=== PATIENT | male | born 1955 | race Caucasian/White ===

== ENCOUNTER → 2018-07-29 | Outpatient (CLI) | payer OTHER ==
--- NOTE | 2018-07-29 08:22 | RAD ---
ABDOMEN COMPLETE History: Abdominal pain, right lower quadrant protrusion with standing and lifting legs Comparison: None. Findings: Multiple sonographic images of the abdomen are submitted. Gallbladder is present without intraluminal abnormality, wall thickening, pericholecystic fluid. Common bile duct is within normal limits at 0.4 cm. No focal hepatic lesion is demonstrated, hepatic echotexture within normal limits. There is segmental visualization of the inferior vena cava. Pancreas is not well-visualized due to bowel gas. Abdominal aorta is also not well visualized due to bowel gas, distally estimated at 2.2 cm in caliber. Right kidney measured 11 x 5 x 5.7 cm. There is nearly anechoic lesion of the inferior right kidney about 2.4 x 2.8 x 1.5 cm in size, overall findings of a cyst. Left kidney measured 12.2 x 4.8 x 5.9 cm. There is no hydronephrosis of either kidney. No free fluid is demonstrated. No soft tissue abnormality is demonstrated by ultrasound of the right lower quadrant. Impression: 1. There is inferior right renal cyst, no other abnormality demonstrated. Midline structures are poorly visualized due to bowel gas as stated. Electronically signed by: Boubacar Ro MD (07/29/2018 8:18 AM) [email or web address]
== END | disposition home or self-care (01) ==
LOC: US 06:44
PROVIDERS: ATTEND Surgery
DX: N28.1 Cyst of kidney, acquired (principal)
CPT/HCPCS: 76700

== ENCOUNTER → 2018-08-07 | Outpatient (CLI) | payer OTHER ==
--- NOTE | 2018-08-07 12:49 | KCIC ---
MRI of the thoracic spine without contrast 08/07/2018 CLINICAL HISTORY: Mid back pain with right flank tingling. TECHNIQUE: Unenhanced T1-weighted, T2-weighted and inversion recovery sagittal and T1-weighted and T2-weighted axial images of the thoracic spine were obtained. T2-weighted sagittal images of the cervical, thoracic and lumbar spine were obtained for localization purposes. FINDINGS: Comparison is made to radiographs of the thoracic spine dated 12/05/2017. Minimal S-shaped curvature of the thoracolumbar spine is seen. Degenerative signal changes are seen involving all of the disks of the cervical spine. Degenerative signal changes are seen within the marrow surrounding these discs. No area of abnormal signal intensity is seen involving the thoracic spinal cord. On the axial images throughout the thoracic disc spaces, degenerative changes are seen consisting of minimal to mild generalized disc bulges and degenerative changes involving the facet joints. Right paracentral disc protrusions are seen at T6-7 and T7-8 which measure 2 to 3 mm in AP diameter. A right paracentral focal disc herniation is seen at T8-9 which measures 4 mm in AP diameter. This effaces the anterior CSF and mildly deforms the anterior aspect of the thoracic spinal cord without impinging upon it. A left paracentral focal disc protrusion is seen at T10-11 which measures 3 mm in AP diameter. This does not result in significant central spinal canal or neural foraminal stenosis. IMPRESSION: Degenerative changes are seen involving the thoracic spine as outlined above. These findings do not result in significant central spinal canal or neural foraminal stenosis. Electronically signed by: César Henderson MD (08/07/2018 12:44 PM) [facility]
== END | disposition home or self-care (01) ==
LOC: KCIC MRI 08:23
PROVIDERS: ATTEND Family Medicine
DX: M47.894 Other spondylosis, thoracic region (principal); M51.24 Other intervertebral disc displacement, thoracic region
CPT/HCPCS: 72146

== ENCOUNTER → 2018-09-17 | Outpatient (CLI) | payer OTHER ==
[~2018-09-17] MED LIST: REGADENOSON 0.4 MG/5 ML DISP.SYRIN. IV ONE
--- NOTE | 2018-09-17 12:11 | RAD ---
MR#: [id number] Date of Study: 09/17/2018 Ordering Physician: THIERRY LING Referring Physician: ANABELA GIANG Tech: RT Noy (R) (N) APPROVED REPORT Test Type: Pharmacological Stress Nurse/Tech: Magdy Phillips RN Test Indications: Paroxysmal atrial Fibrillation Cardiac History: smoker Medications: See Electronic Medical Record Medical History: See Electronic Medical Record Resting ECG: Atrial fibrillation Resting Heart Rate: 41 bpm Resting Blood Pressure: 122/79mmHg Pretest Chest Pain: None Nurse/Tech Notes lungs CTA, Irregular heart rate Consent: The procedure was explained to the patient in lay terms. Informed consent was witnessed. Alex eout was entered into [employer]. History and Stress Test performed by Magdy Phillips RN Pharm. Details Pharmacologic stress testing was performed using 0.4mg per 5ml of regadenoson given intravenously ove r 7-10 seconds. Stress Symptoms No chest pain or symptoms, dyspnea POST EXERCISE Reason for Termination: Infusion complete Max HR: 67 bpm Max Blood Pressure: 137/77mmHg Blood Pressure response to exercise: Normal blood pressure response during stress. Heart Rate response to exercise: normal response Chest Pain: No. Arrhythmia: No. ST Change: No. INTERPRETATION Stress EKG Conclusion: The resting EKG shows sinus bradycardia and nonspecific ST-T wave changes. The stress EKG shows no significant changes from baseline. No EKG evidence of stress-induced ischemia. Imaging Protocol IMAGE PROTOCOL: Rest Tc-99m/stress Tc-99m 1 day Rest: Stress: Viability: Radiopharm.Tc99m ThjvvjlbdAu49v Sestamibi Uezj84gKr 32mCi Duration 13min. 13min. Img Date 09/17/2018 09/17/2018 Inj-Img Maty05qmx. 60min. Rest Admin Site:IV - Right AntecubitalAdministrator:RT Noy (R)(N) Stress Admin Site: IV - Right AntecubitalAdministrator: RT Noy (R)(N) STRESS DATA End Diast. Vol.128.0mlLVEDV index BSA59.0ml End Syst. Vol.39.0mlLVESV index BSA18.0ml Myocardial Qyee136.0gEject. Vzxjdqem39.0% Stress Scores Regional WT0.00Summed WT2.00 Regional WM0.00Summed WM3.00 LV Perfusion The stress scans showed no significant defects. The rest scans showed no significant defects. Nuclear imaging shows no reversible ischemia or infarct. Wall Motion Normal left ventricular systolic function with an ejection fraction of 70%. LV Perf. Quant 17 Seg. SSS0.00 17 Seg. SRS3.00 17 Seg. SDS0.00 Stress Defect Extent (% LAD)0.00Rest Defect Extent (% LAD)7.50Rev. Defect Extent (% LAD)0.00 Stress Defect Extent (% LCX) 0.00Rest Defect Extent (% LCX)0.00Rev. Defect Extent (% LCX)0.00 Stress Defect Extent (% RCA)0.00Rest Defect Extent (% RCA)5.60Rev. Defect Extent (% RCA)0.00 Stress Defect Extent (% DARIAN)0.00Rest Defect Extent (% DARIAN)6.70Rev. Defect Extent (% DARIAN)0.00 Conclusion 1. No EKG evidence of stress-induced ischemia. 2. Nuclear imaging shows no reversible ischemia or infarct. 3. Normal left ventricular systolic function with an ejection fraction of 70%. 4. Moderately low risk Lexiscan nuclear stress test. Signed by : Raul Clark MD Electronically Approved : 09/17/2018 12:10:47
--- NOTE | 2018-09-17 16:35 | CARD ---
MR#: [id number] Date of Study: 09/17/2018 Ordering Physician: THIERRY LING, Referring Physician: THIERRY LING Tech: Patti Strong RDCS APPROVED REPORT EXAM: Two-dimensional and M-mode echocardiogram with Doppler and color Doppler. Other Information Quality : Good Rhythm : Bradycardia INDICATION Atrial Fibrillation RISK FACTORS Smoking 2D DIMENSIONS RVDd2.5 (2.9-3.5cm)Left Atrium(2D)3.4 (1.6-4.0cm) IVSd0.9 (0.7-1.1cm)Aortic Root(2D)3.7 (2.0-3.7cm) LVDd5.1 (3.9-5.9cm)LVOT Diameter2.4 (1.8-2.4cm) PWd0.9 (0.7-1.1cm)LVDs2.7 (2.5-4.0cm) FS (%) 30.0 %SV98.1 ml LVEF(%)60.0 (>50%) Aortic Valve AoV Peak Garfield.150.7cm/sAoV VTI32.4cm AO Peak GR.9.1mmHgLVOT Peak Garfield.125.4cm/s AO Mean GR.5mmHgAVA (VMAX)3.85cm2 DANIEL (VTI)4.30cm2 Mitral Valve MV E Mllwnktg04.7cm/sMV DECEL IHQA049wm MV A Pimfabui93.5cm/sE/A Ratio1.3 Tricuspid Valve TR P. Hqxchmzh494nb/sRAP AGZQEOVR2waMl TR Peak Gr.74tkLoYVDB90peYd Pulmonary Vein S1 Xjhiwuwr76.2cm/sD2 Haflbvxs13.0cm/s LEFT VENTRICLE The left ventricle is normal size. There is normal left ventricular wall thickness. The left ventricu lar systolic function is normal. The Ejection Fraction is 55-60%. There is normal LV segmental wall m otion. RIGHT VENTRICLE The right ventricle is normal size. The right ventricular systolic function is normal. ATRIA The left atrium size is normal. The right atrium size is normal. The interatrial septum is intact wit h no evidence for an atrial septal defect or patent foramen ovale as noted on 2-D or Doppler imaging. AORTIC VALVE The aortic valve is calcified but opens well. Doppler and Color Flow revealed no significant aortic r egurgitation. There is no significant aortic valvular stenosis. MITRAL VALVE The mitral valve is calcified but opens well. Mitral annular calcification is mild. There is no evide nce of mitral valve prolapse. There is no mitral valve stenosis. Doppler and Color Flow revealed no m itral valve regurgitation noted. TRICUSPID VALVE The tricuspid valve is normal in structure and function. Doppler and Color Flow revealed trace tricus pid regurgitation. There is mild pulmonary hypertension. The PA pressure was estimated at 34 mmHg. Th ere is no tricuspid valve stenosis. PULMONIC VALVE The pulmonic valve is not well visualized. Doppler and Color Flow revealed trace to mild pulmonic dina vular regurgitation. There is no pulmonic valvular stenosis. GREAT VESSELS The aortic root is normal in size. The ascending aorta is mildly dilated at 3.5 cm. The IVC is dilate d and collapses >50% with inspiration. PERICARDIAL EFFUSION There is no evidence of significant pericardial effusion. Critical Notification Critical Value: No <Conclusion> The left ventricular systolic function is normal. The Ejection Fraction is 55-60%. There is normal LV segmental wall motion. Trace tricuspid regurgitation. There is mild pulmonary hypertension. The PA pressure was estimated at 34 mmHg. There is no evidence of significant pericardial effusion. Signed by : Thierry Ling, Electronically Approved : 09/17/2018 16:34:40
== END | disposition home or self-care (01) ==
LOC: NM 07:55
PROVIDERS: ATTEND Internal Medicine Cardiovascular Disease
DX: I48.0 Paroxysmal atrial fibrillation (principal); I25.10 Atherosclerotic heart disease of native coronary artery without angina pectoris; I37.1 Nonrheumatic pulmonary valve insufficiency; I27.20 Pulmonary hypertension, unspecified; R00.1 Bradycardia, unspecified; Z87.891 Personal history of nicotine dependence
CPT/HCPCS: 78452; 93017; 93306; 96374; A9500; J2785

== ENCOUNTER → 2019-12-17 | Outpatient (CLI) | payer MEDICARE, OTHER ==
--- NOTE | 2019-12-17 09:17 | CARD ---
MR#: [id number] Date of Study: 12/17/2019 Ordering Physician: THIERRY LING, Referring Physician: THIERRY LING Tech: Patti Strong RDCS APPROVED REPORT EXAM: Two-dimensional and M-mode echocardiogram with Doppler and color Doppler. Other Information Quality : Good Rhythm : Bradycardia INDICATION Atrial Fibrillation 2D DIMENSIONS RVDd2.9 (2.9-3.5cm)Left Atrium(2D)3.2 (1.6-4.0cm) IVSd1.1 (0.7-1.1cm)Aortic Root(2D)3.7 (2.0-3.7cm) LVDd5.2 (3.9-5.9cm)LVOT Diameter2.2 (1.8-2.4cm) PWd0.9 (0.7-1.1cm)LVDs3.3 (2.5-4.0cm) FS (%) 36.2 %SV83.2 ml LVEF(%)65.5 (>50%) Aortic Valve AoV Peak Garfield.160.3cm/sAoV VTI33.3cm AO Peak GR.10.3mmHgLVOT Peak Garfield.138.3cm/s AO Mean GR.5mmHgAVA (VMAX)3.25cm2 DANIEL (VTI)3.30cm2 Mitral Valve MV E Sdgodslq84.0cm/sMV DECEL CQZL017nt MV A Hejnvora05.5cm/sE/A Ratio1.1 Pulmonary Vein S1 Qjwkyhbs10.6cm/sD2 Oiottozp16.8cm/s LEFT VENTRICLE The left ventricle is normal size. There is normal left ventricular wall thickness. The left ventricu lar systolic function is normal. The ejection fraction is 55-60%. There is normal LV segmental wall m otion. Transmitral Doppler flow pattern is Grade II-pseudonormal filling dynamics. RIGHT VENTRICLE The right ventricle is normal size. The right ventricular systolic function is normal. ATRIA The left atrium size is normal. The right atrium size is normal. The interatrial septum is intact wit h no evidence for an atrial septal defect or patent foramen ovale as noted on 2-D or Doppler imaging. AORTIC VALVE The aortic valve is calcified but opens well. Doppler and Color Flow revealed no significant aortic r egurgitation. There is no significant aortic valvular stenosis. MITRAL VALVE The mitral valve is calcified but opens well. Mitral annular calcification is mild. There is no evide nce of mitral valve prolapse. There is no mitral valve stenosis. Doppler and Color Flow revealed no m itral valve regurgitation noted. TRICUSPID VALVE The tricuspid valve is normal in structure and function. Doppler and Color Flow revealed trace tricus pid valve regurgitation. There is no tricuspid valve stenosis. PULMONIC VALVE The pulmonic valve is not well visualized. Doppler and Color Flow revealed no pulmonic valvular regur gitation. There is no pulmonic valvular stenosis. GREAT VESSELS The aortic root is normal in size. The ascending aorta is normal in size. The IVC is normal in size a nd collapses >50% with inspiration. PERICARDIAL EFFUSION There is no evidence of significant pericardial effusion. Critical Notification Critical Value: No <Conclusion> The left ventricular systolic function is normal. The ejection fraction is 55-60%. There is normal LV segmental wall motion. Trace tricuspid valve regurgitation. There is no evidence of significant pericardial effusion. Signed by : Thierry Ling, Electronically Approved : 12/17/2019 09:16:58
== END | disposition home or self-care (01) ==
LOC: ECHO 07:48
PROVIDERS: ATTEND Internal Medicine Cardiovascular Disease
DX: I08.0 Rheumatic disorders of both mitral and aortic valves (principal); I48.0 Paroxysmal atrial fibrillation
CPT/HCPCS: 93306

== ENCOUNTER → 2020-06-24 | Outpatient (CLI) | payer MEDICARE, OTHER ==
--- NOTE | 2020-06-25 10:27 | RAD ---
MR#: [id number] Date of Study: 06/24/2020 Ordering Physician: THIERRY LING, Referring Physician: ANABELA GIANG Tech: RT Esperanza Wilson) (N) APPROVED REPORT Test Type: Pharmacological Stress Nurse/Tech: ashley Phillips RN Test Indications: history of A-Fib Cardiac History: A-fib, x-smoker Medications: See Electronic Medical Record Medical History: See Electronic Medical Record Resting ECG: SB Resting Heart Rate: 43 bpm Resting Blood Pressure: 126/75mmHg Pretest Chest Pain: None Nurse/Tech Notes lungs CTA, S1S2 Consent: The procedure was explained to the patient in lay terms. Informed consent was witnessed. Alex eout was entered into [employer]. History and Stress Test performed by RT Esperanza Wilson) (N) Pharm. Details Pharmacologic stress testing was performed using 0.4mg per 5ml of regadenoson given intravenously ove r 7-10 seconds. Stress Symptoms No chest pain or symptoms. POST EXERCISE Reason for Termination: Infusion complete Max HR: 81 bpm Max Blood Pressure: 129/75mmHg Blood Pressure response to exercise: Normal blood pressure response during stress. Heart Rate response to exercise: Normal response Chest Pain: No. Arrhythmia: No. ST Change: No. INTERPRETATION Stress EKG Conclusion: No evidence of stress induced EKG changes. Imaging Protocol IMAGE PROTOCOL: Rest Tc-99m/stress Tc-99m 1 day Rest: Stress: Viability: Radiopharm.Tc99m QcnafepnjPl09c Sestamibi Uicd14nXh 31.7mCi Duration 13.5min. 13.5min. Img Date 06/24/2020 06/24/2020 Inj-Img Cwgl88ypw. 60min. Rest Admin Site:IV - Left AntecubitalAdministrator:RT Esperanza Wilson)(N) Stress Admin Site: IV - Left AntecubitalAdministrator: RT Carlos VillafuerteR)(N) STRESS DATA End Diast. Vol.102.0mlLVEDV index BSA46.0ml End Syst. Vol.22.0mlLVESV index BSA10.0ml Myocardial Elej051.0gEject. Bbwnntoy23.0% Stress Scores Regional WT0.00Summed WT2.00 Regional WM0.00Summed WM0.00 LV Perfusion Normal perfusion at stress. Wall Motion Normal wall motion. LV Perf. Quant 17 Seg. SSS0.00 17 Seg. SRS4.00 17 Seg. SDS0.00 Stress Defect Extent (% LAD)0.00Rest Defect Extent (% LAD)0.00Rev. Defect Extent (% LAD)0.00 Stress Defect Extent (% LCX) 0.00Rest Defect Extent (% LCX)0.00Rev. Defect Extent (% LCX)0.00 Stress Defect Extent (% RCA)0.00Rest Defect Extent (% RCA)21.10Rev. Defect Extent (% RCA)0.00 Stress Defect Extent (% DARIAN)0.00Rest Defect Extent (% DARIAN)6.10Rev. Defect Extent (% DARIAN)0.00 Other Information Quality:Fair Risk Assessment: Low Risk Conclusion 1. No evidence of stress induced EKG changes. 2. Normal perfusion at stress/rest. 3. Probable subdiaphragmatic attenuation artifact at rest. 4. Normal LV systolic function. EF 60% 5. Low risk study Signed by : Son Bauman, Electronically Approved : 06/24/2020 12:16:39
== END ==
LOC: NM 08:27
PROVIDERS: ATTEND Internal Medicine Cardiovascular Disease
DX: I48.0 Paroxysmal atrial fibrillation (principal); Z87.891 Personal history of nicotine dependence
CPT/HCPCS: 78452; 93017; A9500; J2785

== ENCOUNTER → 2020-07-15 | Outpatient (CLI) | payer MEDICARE, OTHER ==
--- NOTE | 2020-07-15 11:34 | KCIC ---
MRI of the thoracic spine without contrast 07/15/2020 CLINICAL HISTORY: Mid back pain with right-sided abdominal pain. TECHNIQUE: Unenhanced T1-weighted, T2-weighted and inversion recovery sagittal and T1-weighted and T2 -weighted axial images of the thoracic spine were obtained. T2-weighted sagittal images of the cervic al, thoracic and lumbar spine were obtained for localization purposes. FINDINGS: Very mild S-shaped curvature of the thoracolumbar spine is seen. Degenerative signal change s are seen involving all of the disks of the thoracic spine. Degenerative signal changes are seen wit hin the marrow surrounding these discs. No area of abnormal signal intensity is seen involving the th oracic spinal cord. On the axial images throughout the thoracic disc spaces, degenerative changes are seen consisting of minimal generalized disc bulges and degenerative changes involving the facet joints. A right paracent ral focal disc protrusion is seen at T6-7 which measures 3 mm in AP diameter. A right paracentral foc al disc protrusion is seen at T7-8 which measures 3 mm in AP diameter. These do not result in signifi cant central spinal canal stenosis. A central/right paracentral focal disc herniation is seen at T8-9 which measures 4 mm in AP diameter. This effaces the anterior CSF and mildly deforms the right anter ior aspect of the thoracic spinal cord without resulting in significant central spinal canal stenosis or cord impingement. A left paracentral focal disc protrusion is seen at T10-11 which measures 3 mm in AP diameter. This does not result in significant central spinal canal stenosis. No neural foramina l stenosis is seen. IMPRESSION: Degenerative changes are seen throughout the thoracic spine as outlined above. These find ings do not result in significant central spinal canal or neural foraminal stenosis. Electronically signed by: César Henderson MD (07/15/2020 11:31 AM) [place] [id number]
== END ==
LOC: KCIC MRI 09:16
PROVIDERS: ATTEND Nurse Practitioner Family
DX: M47.814 Spondylosis without myelopathy or radiculopathy, thoracic region (principal); M51.24 Other intervertebral disc displacement, thoracic region; M43.8X5 Other specified deforming dorsopathies, thoracolumbar region; M79.2 Neuralgia and neuritis, unspecified
CPT/HCPCS: 72146

== ENCOUNTER → 2020-08-25 | Outpatient (CLI) | payer MEDICARE, OTHER ==
[~2020-08-25] MED LIST changes: +ATOR40TA59 PO; +BISA10SU55 RC; +CELE200C PO; +CHOL2400 MC; +DILT120C99 PO; +ESOM40CA PO; +INUL2TAB4 PO; +METF500T16 PO; +MULT-445 PO; -REGADENOSON 0.4 MG/5 ML DISP.SYRIN. IV ONE; +RIVA20TA2 PO
--- NOTE | 2020-08-25 09:42 | PDOC1 ---
INITIAL PAIN CONSULT DATE OF SERVICE: DOS: DATE: 08/25/20 TIME: 09:32 CHIEF COMPLAINT: Chief Complaint: Right flank and abdominal pain HISTORY OF PRESENT ILLNESS: 65-year-old male presents history of pain right flank mid back into the right abdomen near the rib margin as well as into the abdominal distribution mid abdomen near the umbilicus on the right side. Patient reports this occurred originally in September 2016 he was using a chainsaw to cut some limbs and stepped down off his ladder hard on the right side and twisted at the same time some significant pain in the same distribution on the right side with the stepdown. Patient reports that he continued with his activity and over the years has been getting worse but flares up now and then recently it has been more persistent and is becoming more painful. Patient reports is very burning in sensation on the right flank tingling and numbness as well as some hypersensitivity where it feels like it is burning when his shirt touches the right flank and back as well. Patient ported can be stabbing and sharp and is becoming more constant and aching. Patient has tried physical therapy over the years exercises daily a nd continues exercise and staying active despite the pain. Patient is working as plant electrician and continues to work as well. Patient rates his disability rating 0-10 10 being the worst is a 5 with him home responsibilities recreation social activity 7 with occupation and 0 sexual behavior self-care or life support activities. Patient is try gabapentin as well as Celebrex the Celebrex does decrease the stabbing pain the gabapentin had some significant side effects and stopped taking that although it was not helping much significantly. Patient had MRI scan of the thoracic spine showing generative changes with a central to right paracentral focal disc herniation at T8-9 measuring 4 mm effacing the anterior CSF and mildly deforming the right anterior aspect of the thoracic spinal cord. PAST MEDICAL HISTORY: PMH: Type 2 diabetes, atrial fibrillation, gastroesophageal reflux, arthritis PREVIOUS SURGERIES: Past Surgical Hx: Left rotator cuff repair, cartilage removed from anterior rib cage 2016 CURRENT MEDICATIONS: Current Meds: Active Scripts Medications Dose Route/Sig Max Daily Dose Days Date Category Dose Instructions Dulcolax (Bisacodyl) 10 Mg Supp.rect 1 Supp RC DAILY 10 08/25/20 Reported Multivitamins (Multivitamin) 1 Each Tablet 1 Tab PO DAILY 08/25/20 Reported Fiber Gummies (Inulin) 2 Gm Tab.chew 2 Tab PO DAILY 30 08/25/20 Reported Vitamin D3 (Cholecalciferol (Vitamin D3)) 2,400 Unit/1 Ml Liquid 2,000 Unit MC DAILY PRN 08/25/20 Reported Celebrex (Celecoxib) 200 Mg Capsule 1 Cap PO DAILY 08/25/20 Reported Xarelto (Rivaroxaban) 20 Mg Tablet 1 Tab PO DAILY 30 08/25/20 Reported with food Metformin Hcl 500 Mg Tablet 500 Mg PO DAILY 08/25/20 Reported Atorvastatin Calcium 40 Mg Tablet 1 Tab PO DAILY 08/25/20 Reported Diltiazem 24HR Cd (Diltiazem Hcl) 120 Mg Cap.er.24h 1 Cap PO DAILY 30 08/25/20 Reported Nexium Capsule (Esomeprazole Magnesium) 40 Mg Capsule.dr 1 Cap PO DAILY 08/25/20 Reported ALLERGIES; Allergies: Coded Allergies: No Known Drug Allergies (Unverified , 09/17/18) FAMILY HISTORY: Family Hx: No major medical problems or conditions that he is aware of SOCIAL HISTORY: Social Hx: Patient is under alcohol does not smoke not use any illegal or recreational drugs which he does smoke a Devex compound daily. Patient is has 2 children living home lives locally in [facility] and works as an plant electrician. REVIEW OF SYSTEMS: ROS: Positive for those items mentioned in history of present illness, all systems are reviewed, otherwise negative ,and are complete full and well-documented on patient's chart. PHYSICAL EXAM: VS: Blood pressure is 135/97 pulse 52 respirations 16 temperature 97.9 F height is 5 foot 11 inches weight is 221 pounds PE: PHYSICAL EXAMINATION: GENERAL: The patient is awake, alert, oriented, appropriate, very pleasant de meanor HEENT: Shows normocephalic, atraumatic. Extraocular movements are intact and symmetrical. Oral cavity: Mucous membranes moist and pink. Dentition is intact. NECK: Shows anterior throat supple without palpable lymphadenopathy noted. Swallow reflex symmetrical. CHEST: Shows normal on inspection. Breath sounds are clear bilaterally, no rales rhonchi wheezes auscultated. HEART: Shows S1, S2 clear. No murmurs auscultated. ABDOMEN: Soft, nontender, nondistended, obese. No palpable organomegaly is no kristy. No rebound or guarding demonstrated. Abdomen shows well-healed surgical scar in the inferior aspect of the rib margin on the right side anteriorly. Patient shows some mild asymmetry in the flank musculature with the left being larger than the right on inspection. Patient does have some allodynia with light touch, on the right middle to inferior aspect of the abdominal wall laterally and anteriorly just superior to the umbilicus on the right side only. No rashes no discolorations bilaterally. BACK: Shows spine grossly in the midline. Normal-appearing cervical lordotic curvature. There is slightly increased thoracic kyphosis, some minor flattening of the lumbar lordotic curvature. Lumbar paraspinous muscles show symmetrical on inspection, on palpation shows some moderate tenderness diffusely throughout the upper, middle and lower distribution of the paraspinous muscles bilaterally and also into the lower thoracic paraspinous musculature, firm and tender, but without specific trigger points, without radiation of pain. The patient has good rotational motion of the lumbar spine, both laterally as well as extension and flexion without significant difficulty. No tenderness over the spinous processes, sacrum or sacroiliac regions. EXTREMITIES: Upper extremities show deep tendon reflexes 2+ in the bicep and triceps tendons are equal and symmetrical, motor exam is strong with speech communication professor strength rated at 5 out of 5 as is biceps and triceps flexion bilaterally. Peripheral pulses are 2+ radial bilaterally no peripheral edema is noted. Lower extremities show deep tendon reflexes 2+ in the patellar and tendo calcaneus tendons. Motor exam is 5 on a scale of 5 with right dorsiflexion, extension, quadriceps and hamstring flexion and 5/5 on the left. Peripheral pulses are 1+ posterior tibial. No peripheral edema is noted bilaterally. Lower extremities are warm and dry to touch, equal in color and appearance. . The patient is able to close in the bicep and triceps tendons are equal and symmetrical, motor exam strong with speech communication professor strength rated at 5 out of 5 as is biceps and triceps flexion bilaterally. SKIN: Shows warm and dry, good turgor. No edema. No sores, rashes or bruising throughout. IMPRESSION: Impression: 65-year-old male with 3-year history pain mid back with radiation to his right flank and abdomen, consistent with thoracic radiculopathy. MRI scan thoracic spine as noted Arthritis Atrial fibrillation Type 2 diabetes Plan: Options were discussed with the patient including conservative medical management physical therapies interventional techniques. Patient would like to pursue interventional techniques we discussed a thoracic epidural steroid injection using description as well as anatomical models to describe the procedure. We will check with patient's superintendent transmission first to clear holding his Xarelto for 3 days, if deemed safe and appropriate will have him hold this and return for thoracic epidural steroid injection at that time. In the meantime patient continue with stretching and strengthening exercises as currently performing. CORBY BEAUCHAMP MD Aug 25, 2020 09:42
== END | disposition home or self-care (01) ==
LOC: PNCL 08:25
PROVIDERS: ATTEND Anesthesiology
DX: R10.9 Unspecified abdominal pain (principal); K21.9 Gastro-esophageal reflux disease without esophagitis; M19.90 Unspecified osteoarthritis, unspecified site; E11.9 Type 2 diabetes mellitus without complications; I48.91 Unspecified atrial fibrillation; Z79.4 Long term (current) use of insulin; Z79.899 Other long term (current) drug therapy; Z98.890 Other specified postprocedural states
CPT/HCPCS: 99214; G0463

== ENCOUNTER → 2020-09-02 | Outpatient (CLI) | payer MEDICARE, OTHER ==
[~2020-09-02] MED LIST changes: +IOHEXOL 180 MG/ML 10 ML VIAL. ONE; +methylPREDNISolone ACETATE 40 MG/ML VIAL. ONE; +methylPREDNISolone ACETATE 80 MG/ML VIAL. ONE
--- NOTE | 2020-09-02 11:57 | PDOC ---
Progress Note - Pain Clinic Date of Service: DOS: DATE: 09/02/20 TIME: 11:53 Diagnosis: Dx: Thoracic radiculopathy with thoracic degenerative disc disease and thoracic herniated disc History or Present Illness: HPI: 65-year-old male returns for follow-up status post initial evaluation and clearance to hold his Xarelto for 3 days. Patient has been off of his Xarelto now for 3 days and return still significant pain mid upper back with radiation to the right lateral flank and abdominal wall. Patient reports the pain is stil l sharp and dull in quality describes as tingling and burning stabbing can be constant with activity off and on intensity usually better with sitting or laying down worse with walking standing changing position especially getting up from a seated position and standing patient rates his pain is 8 on scale 10 is worse over the past week 6 on average 3 its least is a 6 today. Patient reports no new motor or sensory deficits no new bowel or bladder incontinence or other complaints. Physical Exam: VS: Blood pressure is 162/77 pulse 88 respirations 18 temperature 97.7 F height is 5 feet 9 inches weight is 220 pounds PE: PHYSICAL EXAMINATION: GENERAL: The patient is awake, alert, oriented, appropriate, very pleasant demeanor HEENT: Shows normocephalic, atraumatic. Extraocular movements are intact and symmetrical. Oral cavity: Mucous membranes moist and pink. NECK: Shows anterior throat supple without palpable lymphadenopathy noted. Swallow reflex symmetrical. CHEST: Shows normal on inspection. Breath sounds are clear bilaterally. HEART: Shows S1, S2 clear. No murmurs auscultated. ABDOMEN: Soft, nontender, nondistended. No palpable organomegaly is noted. BACK: Shows spine grossly in the midline. Normal-appearing cervical lordotic curvature. There is slightly increased thoracic kyphosis, with palpation shows some moderate tenderness right of midline in the mid to lower thoracic distribution but without asymmetry atrophy hypertrophy no trigger points and no radiation with palpation. Patient shows good rotation motion thoracic spine both laterally as well as extension flexion without significant increase in pain. Some minor flattening of the lumbar lordotic curvature. The patient has good rotational motion of the lumbar spine, both laterally as well as extension and flexion without significant difficulty. No tenderness over the spinous processes, sacrum or sacroiliac regions. EXTREMITIES: Lower extremities show deep tendon reflexes 2+ in the patellar and tendo calcaneus tendons. Motor exam is 5 on a scale of 5 with right dorsiflexion, extension, quadriceps and hamstring flexion and 5/5 on the left. Peripheral pulses are 1+ posterior tibial. No peripheral edema is noted bilaterally. Lower extremities are warm and dry to touch, equal in color and appearance. SKIN: Shows warm and dry, good turgor. No edema. No sores, rashes or bruising throughout. Procedure: Procedure: Options were discussed with the patient. Patient will chart reviews his current medication regimen updated current review of systems updated today as well. We will proceed with a thoracic epidural steroid injection at the T8-9 level with fluoroscopic guidance today. Risks were discussed including but not limited to: Bleeding, infection, possibility of epidural hematoma and subsequent neurological compromise, dural puncture, headaches, spinal cord and/or nerve damage, side effects of steroid medication, and poor results regarding pain control. Patient understands and wished to proceed. Patient will return to the clinic in approximate 2 weeks for follow-up, was counseled as to return appointment activity level and side effects to be aware of. Patient will restart his Xarelto tomorrow September 03, 2020 Medication Injected: Med Injected: Procedure is thoracic epidural steroid injection under local anesthetic using sterile prep and drape at the T8-9 level using C-arm fluoroscopic guidance in both AP and lateral views medications injected is 120 mg Depo-Medrol + 10 mL preservative-free normal saline and 2 mL contrast- condition at discharge is stable patient tolerated procedure well had no complications. Condition at Discharge: Condition at Discharge: Condition at discharge stable, patient tolerated the procedure well and had no complications. CORBY BEAUCHAMP MD Sep 02, 2020 11:57
--- NOTE | 2020-09-02 11:58 | PDOC4 ---
PROCEDURE Procedure Patient was consented for thoracic epidural steroid injection. Risks were d iscussed including but not limited to: Bleeding, infection, possibility of epidural hematoma and subsequent neurological compromise, dural puncture, headaches, spinal cord and/or nerve damage, side effects of steroid medication, and poor results regarding pain control. Patient understands and wished to proceed. Procedure is thoracic epidural steroid injection under local anesthetic using sterile prep and drape at the T8-9 level using C-arm fluoroscopic guidance in both AP and lateral views medications injected is 120 mg Depo-Medrol + 10 mL preservative-free normal saline and 2 mL contrast- condition at discharge is stable patient tolerated procedure well had no complications. CORBY BEAUCHAMP MD Sep 02, 2020 11:58
== END | disposition home or self-care (01) ==
LOC: PNCL 11:11
PROVIDERS: ATTEND Anesthesiology
DX: M51.14 Intervertebral disc disorders with radiculopathy, thoracic region (principal); Z79.4 Long term (current) use of insulin; Z79.899 Other long term (current) drug therapy; Z98.890 Other specified postprocedural states
CPT/HCPCS: 62321; J1030; J1040; Q9965

== ENCOUNTER → 2020-09-23 | Outpatient (CLI) | payer MEDICARE, OTHER ==
--- NOTE | 2020-09-23 09:01 | PDOC ---
Progress Note - Pain Clinic Date of Service: DOS: DATE: 09/23/20 TIME: 08:56 Diagnosis: Dx: Thoracic radiculopathy with thoracic degenerative disease and thoracic herniated disc History or Present Illness: HPI: 65-year-old male returns for follow-up status post thoracic epidural steroid injection x1. Patient reports about 50% improvement in the pain in the back and the right flank patient reports the stabbing pain is now improved significantly but there is still a burning quality remaining. Patient reports he is sleeping better at night does not awaken from sleep reports is only noticeable with increased activity twisting and bending of the upper back. Patient describes pain as tingling burning cramping constant at times patient rates his pain as a 7 on scale 10 is worse over the past week 6 on average 5 its least is a 5 today. Patient reports no new motor or sensory deficits no new bowel or bladder cons or other complaints. Physical Exam: VS: Blood pressure is 129/81 pulse 54 respirations 16 temperature 97.9 F weight is 221 pounds PE: PHYSICAL EXAMINATION: GENERAL: The patient is awake, alert, oriented, appropriate, very pleasant demeanor HEENT: Shows normocephalic, atraumatic. Extraocular movements are intact and symmetrical. Oral cavity: Mucous membranes moist and pink. Dentition is intact. Full quezada and mustache NECK: Shows anterior throat supple without palpable lymphadenopathy noted. Swallow reflex symmetrical. CHEST: Shows normal on inspection. Breath sounds are clear bilaterally. HEART: Shows S1, S2 clear. No murmurs auscultated. ABDOMEN: Soft, nontender, nondistended, obese. No palpable organomegaly is noted. BACK: Shows spine grossly in the midline. Normal-appearing cervical lordotic curvature. There is slightly increased thoracic kyphosis, some minor flattening of the lumbar lordotic curvature. Thoracic paraspinous muscles show symmetrical on inspection, with palpation some moderate tenderness to the right of midline in the mid upper distribution of the thoracic spine without significant radiation. Patient does show good rotation of motion of the thoracic spine including extension flexion right and left lateral rotation without significant increase in pain. The patient has good rotational motion of the lumbar spine, both laterally as well as extension and flexion without significant difficulty. EXTREMITIES: Lower extremities show deep tendon reflexes 2+ in the patellar and tendo calcaneus tendons. Motor exam is 5 on a scale of 5 with right do rsiflexion, extension, quadriceps and hamstring flexion and 5/5 on the left. Peripheral pulses are 1+ posterior tibial. No peripheral edema is noted bilaterally. Lower extremities are warm and dry to touch, equal in color and appearance. SKIN: Shows warm and dry, good turgor. No edema. No sores, rashes or bruising throughout. Procedure: Procedure: Options were discussed with the patient. Patient chart reviews his current medication regimen updated current review of systems updated today as well. We will proceed with a second in a series thoracic epidural steroid injection today with fluoroscopic guidance. Patient is been off his Xarelto now for 3 days. Risks were discussed including but not limited to: Bleeding, infection, possibility of epidural hematoma and subsequent neurological compromise, dural puncture, headaches, spinal cord and/or nerve damage, side effects of steroid medication, and poor results regarding pain control. Patient understands and wished to proceed. Patient will return to the clinic in approximate 2 weeks for follow-up, was counseled as to return appointment activity level and side effects to be aware of. Medication Injected: Med Injected: Procedure is thoracic epidural steroid injection under local anesthetic using sterile prep and drape at the T8-9 level using C-arm fluoroscopic guidance in both AP and lateral views medications injected is 120 mg Depo-Medrol + 10 mL preservative-free normal saline and 2 mL contrast- condition at discharge is stable patient tolerated procedure well had no complications. Condition at Discharge: Condition at Discharge: Condition at discharge stable, patient tolerated procedure well had no complications. CORBY BEAUCHAMP MD Sep 23, 2020 09:01
== END | disposition home or self-care (01) ==
LOC: PNCL 08:08
PROVIDERS: ATTEND Anesthesiology
DX: M51.14 Intervertebral disc disorders with radiculopathy, thoracic region (principal); Z79.84 Long term (current) use of oral hypoglycemic drugs; Z79.899 Other long term (current) drug therapy
CPT/HCPCS: 62321; J1030; J1040; Q9965

== ENCOUNTER → 2020-10-14 | Outpatient (CLI) | payer MEDICARE, OTHER ==
[~2020-10-14] MED LIST changes: +BUPIVACAINE MPF 0.25% 10 ML VIAL. ONE; -IOHEXOL 180 MG/ML 10 ML VIAL. ONE; -methylPREDNISolone ACETATE 80 MG/ML VIAL. ONE
--- NOTE | 2020-10-14 09:11 | PDOC ---
Progress Note - Pain Clinic Date of Service: DOS: DATE: 10/14/20 TIME: 09:04 Diagnosis: Dx: Thoracic radiculopathy with thoracic degenerative disease and thoracic herniated disc Myofascial pain History or Present Illness: HPI: 65-year-old male returns follow-up status post thoracic epidural steroid traction x2. Patient reports about 50% improvement but no significant improvement after the last injection compared to the first is about the same. She reports its tingling and burning in the back on the right side sharp and r adiating radiating to the right abdomen upper and lower abdomen which feels like a "razor blade across his belly" patient reports is becoming more constant tingling and burning and stabbing in the right side of the mid upper back and low back as well as rating to the right side. Patient reports is an 8 on scale 10 is worse over the past week 5 on average 3 its least and is an 8 today. Patient reports no new motor or sensory deficits no new bowel or bladder incontinence or other complaints. Discussed with the patient that he had a lumbar MRI scan scheduled but was unable to do that as he needed sedation for his MRI but that was not completed. Physical Exam: VS: Blood pressure is 132/91 pulse 50 respirations 18 temperature 98.3 F height is 5 foot 11 inches weight is 221 pounds PE: PHYSICAL EXAMINATION: GENERAL: The patient is awake, alert, oriented, appropriate, very pleasant demeanor HEENT: Shows normocephalic, atraumatic. Extraocular movements are intact and symmetrical. Oral cavity: Mucous membranes moist and pink. NECK: Shows anterior throat supple without palpable lymphadenopathy noted. Swallow reflex symmetrical. CHEST: Shows normal on inspection. Breath sounds are clear bilaterally. HEART: Shows S1, S2 clear. No murmurs auscultated. ABDOMEN: Soft, nontender, nondistended, obese. No rashes or discoloration of the skin. No palpable organomegaly is noted. No rebound or guarding demonstrated. BACK: Shows spine grossly in the midline. Normal-appearing cervical lordotic curvature. There is slightly increased thoracic kyphosis, some minor flattening of the lumbar lordotic curvature. Thoracic paraspinous muscle shows symmetrical inspection with palpation some very firm ropelike musculature in the mid upper distribution of the thoracic paraspinous musculature as well as into the middle thoracic paraspinous musculature on the right side only and into the rhomboid musculature superiorly as well. Very firm ropelike muscular consistent with trigger point areas of musculature without radiation left side is nontender. Lumbar paraspinous muscles show symmetrical on inspection, on palpation shows some moderate tenderness diffusely throughout the upper, middle and lower distribution of the paraspinous muscles, the right superior lumbar paraspinous but shows very firm ropelike musculature in the superior aspect of the lumbar paraspinous posture consistent with trigger point areas of musculature without radiation of pain. The patient has good rotational motion of the lumbar spine, both laterally as well as extension and flexion without significant difficulty. No tenderness over the spinous processes, sacrum or sacroiliac regions. EXTREMITIES: Lower extremities show deep tendon reflexes 2+ in the patellar and tendo calcaneus tendons. Motor exam is 5 on a scale of 5 with right dorsiflexion, extension, quadriceps and hamstring flexion and 5/5 on the left. Peripheral pulses are 1 posterior tibial. No peripheral edema is noted bilaterally. Lower extremities are warm and dry to touch, equal in color and appearance. SKIN: Shows warm and dry, good turgor. No edema. No sores, rashes or bruising throughout. Procedure: Procedure: Options were discussed with the patient. Patient chart reviews his current medication regimen updated current review of systems updated today as well. We will proceed with trigger point injections in the right thoracic paraspinous posture right rhomboid musculature and right lumbar paraspinous posture. Risks were discussed including but not limited to bleeding infection possibility of intravascular injection sequelae spread local anesthetic numbness side effects steroid medication pneumothorax and poor results regarding pain control. Patient understands wished to proceed. Patient will return to the clinic in approximately 2 weeks for follow-up. Also will order MRI scan of the lumbar spine patient was given Valium 10 mg to take prior to the procedure and at the time of the procedure as he is severely claustrophobic. Medication Injected: Med Injected: Under sterile prep and drape patient in sitting position patient's right side rhomboid thoracic paraspinous and lumbar paraspinous posture was sterilely prepped and draped. Thoracic rhomboid and lumbar paraspinous trigger points were identified and using a 25-gauge needle injected after negative aspiration each injection site total of 7 cc 0.25% bupivacaine and total of 40 mg Depo- Medrol. Patient tolerated procedure well had no complications. Condition at Discharge: Condition at Discharge: Condition at discharge stable, patient already procedure well had no complications. CORBY BEAUCHAMP MD Oct 14, 2020 09:10
--- NOTE | 2020-10-14 09:11 | PDOC4 ---
PROCEDURE Procedure Patient was consented for trigger point injections. Risk were discussed inc luding but not limited to bleeding infection possibility of intravascular injection sequelae spread of local anesthetic numbness pneumothorax side effects of steroid medication portals regarding pain control. Patient understands wished to proceed. Under sterile prep and drape patient in sitting position patient's right side rhomboid thoracic paraspinous and lumbar paraspinous posture was sterilely prepped and draped. Thoracic rhomboid and lumbar paraspinous trigger points were identified and using a 25-gauge needle injected after negative aspiration each injection site total of 7 cc 0.25% bupivacaine and total of 40 mg Depo-Medrol. Patient tolerated procedure well had no complications. CORBY BEAUCHAMP MD Oct 14, 2020 09:11
== END | disposition home or self-care (01) ==
LOC: PNCL 08:03
PROVIDERS: ATTEND Anesthesiology
DX: M51.14 Intervertebral disc disorders with radiculopathy, thoracic region (principal); M79.18 Myalgia, other site; Z79.899 Other long term (current) drug therapy
CPT/HCPCS: 20552; J1030; J3490; 20553

== ENCOUNTER → 2020-12-23 | Outpatient (CLI) | payer MEDICARE, OTHER ==
[~2020-12-23] MED LIST changes: -BUPIVACAINE MPF 0.25% 10 ML VIAL. ONE; -methylPREDNISolone ACETATE 40 MG/ML VIAL. ONE
--- NOTE | 2020-12-23 15:58 | KCIC ---
EXAM: Lumbar spine MRI without contrast. HISTORY: Right lower extremity radiculopathy. TECHNIQUE: Multiplanar, multisequence magnetic resonance imaging of the lumbar spine was performed wi thout contrast. COMPARISON: Thoracic spine MRI dated 07/15/2020. FINDINGS: There is 3 mm retrolisthesis of L2 on L3. There is degenerative endplate remodeling with di sc space narrowing and osteophytosis primarily at the upper lumbar levels. There are few endplate Jairo morl's nodes. There are few osseous hemangiomas. There is no fracture or suspicious osseous lesion. T he conus terminates at L1. There is a small simple cyst within the right kidney. Follow-up is not rou tinely performed for simple cysts. At L1-L2, there is a disc bulge and endplate remodeling. There is mild bilateral foraminal stenosis. At L2-L3, there is a disc bulge and endplate remodeling. There is slight retrolisthesis. There is mil d bilateral foraminal stenosis. At L3-L4, there is a left extra foraminal disc protrusion superimposed on a disc bulge and endplate r emodeling. There is mild to moderate left greater than right foraminal stenosis. At L4-L5, there is a disc bulge and endplate remodeling. There is mild bilateral facet arthropathy. T here is [id number] left greater than right foraminal stenosis. At L5-S1, there is a disc bulge and endplate remodeling. There is mild bilateral foraminal stenosis. IMPRESSION: Multilevel degenerative change involving the lumbar spine, resulting in [id number] foraminal stenosis at the aforementioned levels. Electronically signed by: Kamila Vasquez MD (12/23/2020 3:56 PM) [id number]
== END | disposition home or self-care (01) ==
LOC: KCIC MRI 14:27
PROVIDERS: ATTEND Anesthesiology
DX: M47.26 Other spondylosis with radiculopathy, lumbar region (principal); M48.061 Spinal stenosis, lumbar region without neurogenic claudication; Z79.899 Other long term (current) drug therapy; Z79.84 Long term (current) use of oral hypoglycemic drugs
CPT/HCPCS: 72148

== ENCOUNTER → 2020-12-28 | Outpatient (CLI) | payer MEDICARE, OTHER ==
[~2020-12-28] MED LIST changes: +BUPIVACAINE MPF 0.25% 10 ML VIAL. ONE; +methylPREDNISolone ACETATE 40 MG/ML VIAL. ONE
--- NOTE | 2020-12-28 09:49 | PDOC ---
Progress Note - Pain Clinic Date of Service: DOS: DATE: 12/28/20 TIME: 09:43 Diagnosis: Dx: Thoracic radiculopathy with thoracic degenerative disease and thoracic herniated disc Myofascial pain History or Present Illness: HPI: 65-year-old male returns for follow-up status post trigger point injections bilateral thoracic and rhomboid distribution the paraspinous muscle as well as the right lumbar paraspinous musculature. We also did order an MRI scan and we reviewed that with him today showing some degenerative multiple levels most pronounced at L2-3 L3-4 and L4-5. Patient reports still pain more in the mid upper back slightly more on the right than the left and present on the left at this time which is worse with changing positions walking standing standing up from seated position especially is noticeable. Patient reports that the pain is a 9 on scale 10 is worse over the past week 3 on average to its least is a 4 today patient reports that sharp and tight tingling at times on and off radiating around to the right thoracic and upper abdominal region as well as the left thoracic region on the lateral aspect as well. Patient reports no new motor or sensory deficits no new changes. Patient reports that he is sleeping better at night and burning in the right abdomen and lower abdominal region is improved after the last trigger point injections. Physical Exam: VS: Blood pressure is 136/86 pulse 56 respirations 16 temperature 98.1 F weight is 223 pounds PE: PHYSICAL EXAMINATION: GENERAL: The patient is awake, alert, oriented, appropriate, very pleasant demeanor HEENT: Shows normocephalic, atraumatic. Extraocular movements are intact and symmetrical. Patient wearing eyeglasses. Oral cavity: Mucous membranes moist and pink. Dentition is intact. NECK: Shows anterior throat supple without palpable lymphadenopathy noted. Swallow reflex symmetrical. CHEST: Shows normal on inspection. Breath sounds are clear bilaterally, no rales rhonchi or wheezes auscultated. HEART: Shows S1, S2 clear. No murmurs auscultated. ABDOMEN: Soft, nontender, nondistended. No palpable organomegaly is noted. No rebound or guarding demonstrated. Patient has some moderate tenderness with palpation in the musculature in the right and left upper quadrants but without significant radiation. BACK: Shows spine grossly in the midline. Normal-appearing cervical lordotic curvature. There is slightly increased thoracic kyphosis, some minor flattening of the lumbar lordotic curvature. Thoracic paraspinous muscle shows very firm ropelike musculature in the mid and upper distribution of the thoracic paraspinous muscles on the right and also in the mid to lower distribution on the left very firm ropelike muscles are very tender to palpation but without radiation. This is true into the right rhomboid as well as the right upper and left upper lumbar distribution with very firm ropelike muscular consistent with trigger point areas of muscle again without radiation on palpation. Lumbar paraspinous muscles show symmetrical on inspection. The patient has good rotational motion of the lumbar spine, both laterally as well as extension and flexion without significant difficulty. No tenderness over the spinous processes, sacrum or sacroiliac regions. EXTREMITIES: Lower extremities show deep tendon reflexes 2 in the patellar and tendo calcaneus tendons. Motor exam is 5 on a scale of 5 with right dorsiflexion, extension, quadriceps and hamstring flexion and 5/5 on the left. Peripheral pulses are 1 posterior tibial. No peripheral edema is noted bilaterally. Lower extremities are warm and dry. SKIN: Shows warm and dry, good turgor. No edema. No sores, rashes or bruising throughout. Procedure: Procedure: Options were discussed with patient. Patient's old chart was reviewed his current medication regimen updated current review of systems updated today as well. We will proceed with trigger point injections of the identified musculature in the right rhomboid, right thoracic paraspinous musculature, right lumbar paraspinous posterior and left thoracic paraspinous posture and left lumbar paraspinous musculature. Risk were discussed including but not limited to bleeding infection possibility of intravascular injection sequelae pneumothorax spread to local anesthetic numbness side effects steroid medication portals regarding pain control. Patient understands wished to proceed. Patient return to the clinic in approximate 4 weeks for follow-up or as necessary. Patient was counseled as to return appointment activity level and side effects to be aware of. Medication Injected: Med Injected: Patient sitting position under sterile prep and drape, patient in sitting position, trigger points were identified in the right rhomboid musculature right thoracic paraspinous posterior right lumbar paraspinous posterior left lumbar paraspinous posterior and left thoracic paraspinous musculature. Using a 25- gauge needle after negative aspiration each injection site for a total of 0.25% bupivacaine 10 cc and total of 40 mg Depo-Medrol. Patient tolerated the procedure well had no complications. Condition at Discharge: Condition at Discharge: Condition at discharge stable, patient tolerated the procedure well and had no complications. CORBY BEAUCHAMP MD Dec 28, 2020 09:49
--- NOTE | 2020-12-28 09:50 | PDOC4 ---
PROCEDURE Procedure Patient was consented for trigger point injections. Risk were discussed inc luding but not limited to bleeding infection possibility of intravascular injection sequelae spread local anesthetic numbness pneumothorax side effects steroid medication portals regarding pain control. Patient understands wished to proceed. Patient sitting position under sterile prep and drape, patient in sitting position, trigger points were identified in the right rhomboid musculature right thoracic paraspinous posterior right lumbar paraspinous posterior left lumbar paraspinous posterior and left thoracic paraspinous musculature. Using a 25- gauge needle after negative aspiration each injection site for a total of 0.25% bupivacaine 10 cc and total of 40 mg Depo-Medrol. Patient tolerated the procedure well had no complications. CORBY BEAUCHAMP MD Dec 28, 2020 09:50
== END | disposition home or self-care (01) ==
LOC: PNCL 08:56
PROVIDERS: ATTEND Anesthesiology
DX: M51.14 Intervertebral disc disorders with radiculopathy, thoracic region (principal); M79.18 Myalgia, other site; Z79.4 Long term (current) use of insulin; Z79.899 Other long term (current) drug therapy
CPT/HCPCS: 20553; J1030; J3490

== ENCOUNTER → 2021-06-22 | Outpatient (CLI) | payer MEDICARE, OTHER ==
[~2021-06-22] MED LIST changes: -BUPIVACAINE MPF 0.25% 10 ML VIAL. ONE; +REGADENOSON 0.4 MG/5 ML DISP.SYRIN. IV ONE; -methylPREDNISolone ACETATE 40 MG/ML VIAL. ONE
--- NOTE | 2021-06-23 17:26 | CARD ---
MR#: [id number] Date of Study: 06/22/2021 Ordering Physician: THIERRY LING, Referring Physician: THIERRY LING Tech: Neris Lloyd [facility] APPROVED REPORT EXAM: Two-dimensional and M-mode echocardiogram with Doppler and color Doppler. Other Information Quality : AverageHR: 42bpm Rhythm : Atrial Fibrillation INDICATION Atrial Fibrillation RISK FACTORS Hypertension Obesity Smoking 2D DIMENSIONS RVDd3.0 (2.9-3.5cm)Left Atrium(2D)3.5 (1.6-4.0cm) IVSd1.2 (0.7-1.1cm)Aortic Root(2D)4.0 (2.0-3.7cm) LVDd4.6 (3.9-5.9cm)LVOT Diameter2.3 (1.8-2.4cm) PWd1.0 (0.7-1.1cm)LVDs2.7 (2.5-4.0cm) FS (%) 40.7 %SV68.1 ml Aortic Valve AoV Peak Garfield.162.3cm/sAoV VTI39.4cm AO Peak GR.10.5mmHgLVOT Peak Garfield.127.4cm/s AO Mean GR.6mmHgAVA (VMAX)3.27cm2 Mitral Valve MV E Rmafhtlh31.1cm/sMV DECEL NTVC906in MV A Tzvqwxqf25.9cm/sE/A Ratio1.1 Pulmonary Valve PV Peak Eaqdwgkh71.8cm/s Tricuspid Valve TR P. [id number]/sTR Peak Gr.35mmHg LEFT VENTRICLE The left ventricle is normal size. There is borderline concentric left ventricular hypertrophy. The l eft ventricular systolic function is normal and the ejection fraction is within normal range. LV eje ction fraction 55-60%. There is normal LV segmental wall motion. Transmitral Doppler flow pattern is Grade I-abnormal relaxation pattern. RIGHT VENTRICLE The right ventricle is normal size. There is normal right ventricular wall thickness. The right ventr icular systolic function is normal. ATRIA The left atrium size is normal. The right atrium is mildly dilated. The interatrial septum is intact with no evidence for an atrial septal defect or patent foramen ovale as noted on 2-D or Doppler imagi ng. AORTIC VALVE The aortic valve is normal in structure and function. Doppler and Color Flow revealed trace aortic re gurgitation. There is no significant aortic valvular stenosis. MITRAL VALVE The mitral valve is normal in structure and function. There is no evidence of mitral valve prolapse. There is no mitral valve stenosis. Doppler and Color-flow revealed mild mitral regurgitation. TRICUSPID VALVE The tricuspid valve is normal in structure and function. Doppler and Color Flow revealed trace tricus pid regurgitation. Estimated PAP 40 mmHg. There is no tricuspid valve stenosis. PULMONIC VALVE The pulmonary valve is normal in structure and function. Doppler and Color Flow revealed trace to mil d pulmonic valvular regurgitation. GREAT VESSELS The aortic root is normal in size. The ascending aorta is normal in size. The IVC is normal in size a nd collapses >50% with inspiration. PERICARDIAL EFFUSION There is no evidence of significant pericardial effusion. Critical Notification Critical Value: No <Conclusion> The left ventricle is normal size. The left ventricular systolic function is normal and the ejection fraction is within normal range. LV ejection fraction 55-60%. There is normal LV segmental wall motion. There is borderline concentric left ventricular hypertrophy. Doppler and Color Flow revealed trace aortic regurgitation. There is no significant aortic valvular stenosis. Doppler and Color-flow revealed mild mitral regurgitation. Doppler and Color Flow revealed trace tricuspid regurgitation. Estimated PAP 40 mmHg. Signed by : Raul Clark MD Electronically Approved : 06/23/2021 17:26:24
== END ==
LOC: ECHO 07:50
PROVIDERS: ATTEND Internal Medicine Cardiovascular Disease
DX: I34.0 Nonrheumatic mitral (valve) insufficiency (principal); I37.1 Nonrheumatic pulmonary valve insufficiency; I48.0 Paroxysmal atrial fibrillation
CPT/HCPCS: 93306; A9500